=== PATIENT | female | born 1970 | race Caucasian/White ===

== ENCOUNTER → 2021-01-20 | Outpatient (CLI) | payer BC ==
[2021-01-20 15:53] LABS: CREATINE KINASE 80 U/L (26-192); TROPONIN I < 0.04 NG/ML (0.0-0.05)
== END | disposition home or self-care (01) ==
LOC: LAB 14:09
PROVIDERS: ATTEND Family Medicine
DX: R07.9 Chest pain, unspecified (principal); R00.2 Palpitations; R55 Syncope and collapse; R53.83 Other fatigue
CPT/HCPCS: 36415; 82550; 82553; 84484; 85651